=== PATIENT | male | born 1965 | race Caucasian/White ===

== ENCOUNTER 2019-11-05 09:42 | Outpatient (CLI) | payer OTHER, SELFPAY ==
--- NOTE | 2019-11-05 09:55 | MR_ITS ---
WS: [id number] MRI LEFT KNEE HISTORY: LEFT KNEE PAIN COMPARISON: None available. Anterior cruciate ligament: Intact. Posterior cruciate ligament: Intact. Medial collateral ligament: Increased fluid signal on both sides of the MCL, greatest below the knee joint. Thickening of the ligaments with increased T2 signal and soft tissue signal surrounding the li gaments. Posterior lateral corner structures: Intact. Medial menisci: Intact. Normal signal, size and shape. Lateral meniscus: Mild intrasubstance degeneration in the anterior and posterior horns. No tear. Extensor mechanism: Distal quadriceps tendon and patellar tendons are intact. Fluid and soft tissue: Small suprapatellar joint effusion. No Oconnor's cyst. Osseous and articular structures: Patellofemoral compartment: Normal. Medial compartment: Mild narrowing of the medial compartment. There are several osteochondral lesions in the cartilage along the weightbearing surface of the medial tibial plateau. No underlying marrow edema. Lateral compartment: Mild narrowing of the lateral compartment. Very mild thinning and fissuring of t he cartilage. Official cartilage defect lateral tibial plateau. Small osteophytes from the joint line . Chronic subchondral cystic changes at the base of the tibial spine. MR/MR knee LT wo con* [id number] IMPRESSION: 1. Grade 2 MCL sprain. 2. 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
== END 2019-11-05 09:43 | disposition home or self-care (01) ==
LOC: RADWPI 09:49
PROVIDERS: Family Provider Family Medicine; PCP Emergency Medicine; Visit Provider Family Medicine
DX: M25.562 Pain in left knee (principal); S83.412A Sprain of medial collateral ligament of left knee, initial encounter; X58.XXXA Exposure to other specified factors, initial encounter; M94.262 Chondromalacia, left knee
CPT/HCPCS: 73721